=== PATIENT | female | born 1955 | race Hispanic/Latino ===

== ENCOUNTER 2018-01-21 07:02 | Day surgery (SDC) | payer OTHER ==
[2018-01-21] MEDS ORDERED: Ringers Lactate 1,000 ML IV ONE (07:50)
[2018-01-21] MEDS ORDERED: LIDOCAINE 1% MPF 5 ML VIAL ONE (08:35)
[2018-01-21] MEDS ORDERED: PROPOFOL 200 MG/20 ML VIAL IV ONE (08:35)
--- NOTE | 2018-01-21 09:03 | ENDO RPT ---
[address], [address] COLONOSCOPY PROCEDURE REPORT EXAM DATE: 01/21/2018 PATIENT NAME: Stephanie Nick MR #: [id number] BIRTHDATE: 1955 ATTENDING: Jose Bonilla MD STATUS: outpatient PAIL BAILER: Evelina Harris and Zayra Max RN INDICATIONS: The patient is a 63 yr old Female here for a colonoscopy due to abdominal pain PROCEDURE PERFORMED: Colonoscopy MEDICATIONS: Per Anesthesia. ESTIMATED BLOOD LOSS: None CONSENT: The patient understands the risks and benefits of the procedure and understands that these risks include, but are not limited to: sedation, allergic reaction, infection, perforation and/or bleeding. Alternative means of evaluation and treatment include, among others: physical exam, x-rays, and/or surgical intervention. The patient elects to proceed with this endoscopic procedure. DESCRIPTION OF PROCEDURE: During intra-op preparation period all mechanical medical equipment was checked for proper function. Hand hygiene and appropriate measures for infection prevention was taken. Procedure, possible complications, alternatives including, but not limited to possibility of bleeding, perforation, tear, infection, sepsis, need for surgery, need for blood transfusion, were explained to the patient. After the risks, benefits and alternatives of the procedure were thoroughly explained, Informed consent was verified, confirmed and timeout was successfully executed by the treatment team. The patient was placed in the left lateral position. A digital rectal exam was performed and revealed external hemorrhoids. After appropriate level of anesthesia, the scope was passed. The EC-[id number] ([id number]) endoscope was introduced through the anus and advanced to the cecum, which was identified by transillumination from the light source, the appendix, and the ileocecal valve. The quality of the prep was good. The instrument was then slowly withdrawn as the colon was fully examined. Scope withdrawal time was . COLON FINDINGS: Diverticula was found. Retroflexed views revealed no abnormalities and Retroflexed views revealed medium hemorrhoids. The scope was then completely withdrawn from the patient and the procedure terminated. ADVERSE EVENTS: There were no complications. IMPRESSIONS: Diverticula RECOMMENDATIONS: follow-up: office 1 week(s) RECALL: Return in 5 year(s) for Colonoscopy. Jose Bonilla MD eSigned: Jose Bonilla MD 01/21/2018 8:54 AM cc: Kelly Nuñez M.D. CPT CODES: ICD9 CODES:
[2018-01-21 11:10] VITALS: BP 135/80; TEMP 97.5; O2SAT 97
== END 2018-01-21 10:15 | disposition home or self-care (01) ==
LOC: OR 07:02
PROVIDERS: ATTEND Surgery
PROC: 0DJD8ZZ Inspection of Lower Intestinal Tract, Via Natural or Artificial Opening Endoscopic (ICD-10-PCS; principal; 2018-01-21 08:30)
DX: R10.2 Pelvic and perineal pain (principal); K59.00 Constipation, unspecified; K92.1 Melena; Z86.010 Personal history of colon polyps; K64.4 Residual hemorrhoidal skin tags; K57.30 Diverticulosis of large intestine without perforation or abscess without bleeding